=== PATIENT | male | born 1940 | race Two or more races ===

== ENCOUNTER 2020-08-26 06:15 | Day surgery (SDC) | payer OTHER ==
[~2020-08-26 06:15] MED LIST: FORTAMET500 MG PO; TOPROL XL25 M1 PO; XARELTO20 MG PO; ZESTRIL20 MG PO
[2020-08-26] MEDS ORDERED: ULTRACET PO (12:33)
== END 2020-08-26 14:35 | disposition home or self-care (01) ==
LOC: EDSEX 06:15 → CIR.AMB 06:15
PROVIDERS: ATTEND Surgery
DX: N63.20 Unspecified lump in the left breast, unspecified quadrant (principal); Z20.828 Contact with and (suspected) exposure to other viral communicable diseases